=== PATIENT | female | born 2000 | race Two or more races ===

== ENCOUNTER 2025-09-03 20:35 | Emergency (ER) | payer MEDICAID, SELFPAY ==
[2025-09-03 20:37] VITALS: BMI 30.8
[2025-09-03 21:04] VITALS: BP 121/71; PULSE 63; RESP 18; TEMP 36.8; O2SAT 99
--- NOTE | 2025-09-03 21:14 | XR_ITS ---
Examination: OB Transvaginal ultrasound of the pelvis, complete Technique: Transvaginal sonographic images pelvis performed using serrano scale imaging Exam date and time: September 03, 2025, 2121 hours INDICATIONS: Pelvic cramping bleeding in 4 days ago. FINDINGS: Uterus 9.1 cm CRL 1.1 cm corresponds to 7 weeks 1 day gestational age Cardiac motion 148 bpm Subchorionic hemorrhage 19 x 6 x 22 mm Right ovary 4.4 cm arterial flow, 22 x 23 mm corpus luteum cyst Left ovary 2.7 cm arterial flow IMPRESSION: Viable intrauterine gestation 7 weeks 1 day.
--- NOTE | 2025-09-03 21:15 | EDNOTE_ITS ---
ED Abdominal Pain RME/HPI General Chief Complaint: Abdominal Pain Stated complaint: ABD CRAMPING Time seen by provider: 09/03/25 21:06 Arrival date/time: 09/03/25 20:35 Source: patient, RN notes reviewed and old records reviewed Mode of arrival: ambulatory Limitations: no limitations RME / HPI RME / HPI narrative: 24yof approx 7 weeks gestation presents to ED for 4-day history of intermittent pelvic cramping. Patient reports nausea and vomiting the past few days as well, x2 episodes of vomiting today. No fever, dysuria, vaginal bleeding or vaginal discharge reported. No medications or treatments since onset. LMP 07/17/25. Related Data Previous Rx's ?Medication ?Instructions ?Recorded ondansetron 4 mg disintegrating 4 mg PO Q6H PRN nausea and 09/03/25 tablet vomiting #10 tabs Allergies Allergy/AdvReac Type Severity Reaction Status Date / Time No Known Allergies Allergy Verified 09/03/25 20:36 Review of Systems Review of Systems Systems Reviewed: All systems reviewed, normal except as documented Constitutional Constitutional: Denies chills and Denies fever(s) Gastrointestinal Gastrointestinal: Reports nausea and Reports vomiting Genitourinary Genitourinary: Denies abnormal vaginal bleeding, Denies dysuria, Denies flank pain, Reports pelvic pain and Denies vaginal discharge Musculoskeletal Musculoskeletal: Denies back pain Past Medical History Past Medical History GASTROINTESTINAL: Positive Obesity Surgical History OTHER SURGICAL HX: Denies past surgical history Social History SMOKING STATUS: Never smoker SUBSTANCE USE: does not use ALCOHOL: Never ED Exam General Limitations: Present no limitations General appearance: Present alert and in no apparent distress Head Head exam: Present atraumatic and normocephalic Eye Eye exam: Present normal appearance, PERRL and EOMI ENT ENT exam: Present normal exam and mucous membranes moist Neck Neck exam: Present normal inspection and full ROM Chest Chest inspection: Present normal inspection and symmetric chest wall rise Respiratory Respiratory exam: Present normal lung sounds bilaterally; Absent respiratory di stress Cardiovascular Cardiovascular exam: Present regular rate and normal rhythm Abdominal Exam Abdominal exam: Present soft; Absent distention, tenderness, guarding or rebound Extremities Exam Extremities exam: Present normal inspection and full ROM Neurological Exam Neurological exam: Present alert and oriented X3 Psychiatric Psychiatric exam: Present normal affect and normal mood Skin Skin exam: Present warm, dry, intact and normal color Course Quality Measures none Orders Category Date Time Status US OB transvaginal Stat Exams 09/03/25 21:14 Completed Beta HCG,Quantitative Stat Lab 09/03/25 21:56 Completed CBC Stat Lab 09/03/25 21:56 Completed CMP [Comprehensive Metabolic Panel] Stat Lab 09/03/25 21:56 Completed UA [Urinalysis] Stat Lab 09/03/25 21:40 Completed Ondansetron Odt [Zofran Odt] Med 09/03/25 21:14 Discontinued 4 mg PO X1 ONE Vital Signs Vital signs: Vital Signs Temperature 98.2 F 09/03/25 21:04 Pulse Rate 63 09/03/25 21:04 Respiratory Rate 18 09/03/25 21:04 Blood Pressure 121/71 09/03/25 21:04 Pulse Oximetry (%) 99 09/03/25 21:04 Oxygen Delivery Method Room Air 09/03/25 21:04 Abdominal Pain MDM MDM Narrative MDM Narrative:: 24yof approx 7 weeks gestation presents to ED for 4-day history of intermittent pelvic cramping. Patient reports nausea and vomiting the past few days as well, x2 episodes of vomiting today. No fever, dysuria, vaginal bleeding or vaginal discharge reported. No medications or treatments since onset. LMP 07/17/25. Patient updated on labs and imaging. Encouraged close follow-up with OB. Recommended taking daily prenatals. Tylenol prn pain. Stable for discharge, RTED precautions given. Patient data External records reviewed:: None (No prior visits) Clinical information provided by:: patient Social determinants that could affect healthcare access:: other (specify) (unemployed) Patient has the following chronic illnesses:: Obesity How is presenting disease/condition affected by chronic disease/condition?: uneffected by Evaluation data The following diagnostics were reviewed and interpreted by me:: lab results and radiology exam(s) Lab and/or radiology exams considered but not ordered:: None Interpretation Summary: No anemia UA -leuks/-blood Ob ultrasound: viable IUP per my read Medications / Prescriptions Medications or Prescriptions considered but not ordered:: No antibiotics recommended at this time Medication administrations:: Medication Administration History Discontinued Medications Ondansetron HCl (Ondansetron Odt 4 Mg Tabrap) 4 mg PO X1 ONE; Protocol Stop: 09/03/25 21:15 Last Admin: 09/03/25 21:42 Dose: 4 mg Documented By: CVL Above medication administered in ED Consultations Consultation(s) initiated? (list below): No Diagnosis Differential diagnosis abdominal pain: other (Abdominal pain in , threatened miscarriage, UTI, ectopic , round ligament pain) Most likely diagnosis given after review of the tests above:: Pelvic pain during early Admission Indicated Admission indicated?: not indicated Admission Request Was there a request for admission?: No Disposition Plan Disposition Plan: Discharge Discharge Attestation Discharge Attestation: The patient and all family members were given an opportunity to ask questions and understood the discharge instructions. Discharge instructions specifically effects, indications for sooner follow up or return to the emergency department, and the expected course of current diagnosis. Patient condition: Stable Discharge Plan Plan Patient Disposition: HOME (Self Care) Patient condition on transfer: Stable Prescriptions/Referrals Prescriptions/Med Rec: New ondansetron 4 mg tablet,disintegrating 4 mg PO Q6H PRN (Reason: nausea and vomiting) Qty: 10 0RF Referrals: No Primary/Family,Physician [Primary Care Provider] - In 1 week Problem List Clinical Impression: Pelvic pain during , Vomiting during Patient/Caregiver Discharge Instructions Education Materials: ED Abdominal Pain, Early Additional Instructions: Tylenol can be taken as needed for pain. Make sure you are taking a daily vitamin. Recommend close follow-up with your OB Print Language: Monegasque Stand Alone Forms: Margy Award Info., Patient Portal Info Letter PA/MADALYN Supervising Physician DAVID/MADALYN Supervising Physician: Ronnie
[2025-09-03] MEDS: ONDANSETRON ODT 4 MG TABRAP PO (21:42)
[2025-09-03 22:04] LABS: Collection Type, Urine Clean Catch
[2025-09-03 22:10] LABS: Basophils # (Auto) 0.0 Thou/mm3 (0.0-0.2); Basophils % (Auto) 0 % (0-2.5); Eosinophils # (Auto) 0.2 Thou/mm3 (0.0-0.5); Eosinophils % (Auto) 1 % (0-10); Hematocrit 36.3 % (36.0-46.0); Hemoglobin 12.8 g/dL (12.0-16.0); Immature Granulocytes Auto 0.03 Thou/mm3 (0.00-0.00); Lymphocytes # (Auto) 3.1 Thou/mm3 (1.0-4.8); Lymphocytes % (Auto) 26 % (10-50); Mean Corpuscular HGB Conc 35.3 g/dl (31.0-37.0); Mean Corpuscular Hemoglobin 31.6 pg (25.0-35.0); Mean Corpuscular Volume 90 fL (80-100); Monocytes # (Auto) 1.1 Thou/mm3 (0.0-0.8); Monocytes % (Auto) 9 % (0-12); Neutrophils # (Auto) 7.7 Thou/mm3 (1.8-7.7); Neutrophils % (Auto) 63 % (37-80); Nucleated Red Blood Cell # 0.00 Thou/mm3 (0.00-0.00); Nucleated Red Blood Cell % 0 /100 WBC (0); Platelet Count 258 Thou/mm3 (140-440); RDW Standard Deviation 41.8 fL (36.4-46.3); Red Blood Count 4.05 Miln/mm3 (4.00-5.20); White Blood Count 12.1 Thou/mm3 (3.6-11.0)
[2025-09-03 22:12] LABS: Bilirubin,Urine Negative (Negative); Blood,Urine Negative (Negative); Clarity,Urine Clear (Clear/Hazy); Color,Urine Lt-Yellow (Lt Yel-Yel); Glucose, Urine Negative (Negative); Ketones,Urine Negative (Negative); Leukocyte Esterase,Urine Negative (Negative); Nitrite,Urine Negative (Negative); PH,Urine 7.5 (5.0-7.0); Protein,Urine Negative (Neg - Trace); RBC,Urine 2 /hpf (0-3); Specific Gravity,Urine 1.020 (1.001-1.035); Squamous Epithelial Cell,Urine 1 /hpf (0-5); Urobilinogen,Urine Negative mg/dL (0.0-1.0); WBC,Urine 1 /hpf (0-5)
[2025-09-03 22:39] LABS: Alanine Aminotransferase 17 U/L (10-49); Albumin, Serum 4.4 gm/dL (3.5-5.0); Anion Gap 9 (7-16); Aspartate Amino Transferase 18 U/L (0-34); BUN/Creatinine Ratio 11 Ratio (12-20); Bilirubin,Total 0.3 mg/dL (0.3-1.2); Blood Urea Nitrogen 9 mg/dL (9-23); Calcium 9.1 mg/dL (8.3-10.6); Calcium (Corrected) 9.1 mg/dL (8.5-10.1); Carbon Dioxide 24.7 mMol/L (20.0-31.0); Chloride 104 mMol/L (98-107); Creatinine (Component) 0.8 mg/dL (0.6-1.3); Estimated Creatinine Clearance 107.9 mL/min (>60); Globulin 2.4 gm/dL (2.3-3.5); Glucose 94 mg/dL (74-106); Osmolality,Calculated 274 (275-295); Potassium 3.7 mMol/L (3.4-5.1); Sodium 138 mMol/L (136-145); Total Protein 6.8 gm/dL (5.7-8.2); eGFR > 60 See Note
[2025-09-03 22:40] LABS: Albumin/Globulin Ratio 1.8 (1.2-2.2); Alkaline Phosphatase 88 U/L (46-116)
[2025-09-03 23:57] VITALS: RESP 14
== END 2025-09-03 23:58 | disposition home or self-care (01) ==
PROVIDERS: Physician Assistant; Emergency Provider Emergency Medicine
DX: O21.9 Vomiting of pregnancy, unspecified (principal); Z3A.01 Less than 8 weeks gestation of pregnancy
CPT/HCPCS: 36415; 76817; 80053; 81001; 84702; 85025; 99283; Q0162